=== PATIENT | female | born 1960 | race Caucasian/White ===

== ENCOUNTER 2023-08-19 22:32 | Emergency (ER) | payer MEDICARE ==
[~2023-08-19] VITALS: Ht 152.4 cm; Wt 61.0 kg
[2023-08-19 22:35] VITALS: TEMP 98.4; O2SAT 97
[2023-08-20 02:29] VITALS: BP 140/83; PULSE 67; RESP 18
== END 2023-08-20 02:30 | disposition home or self-care (01) ==
LOC: ER 22:32
DX: M54.50 Low back pain, unspecified (principal); F31.9 Bipolar disorder, unspecified; I10 Essential (primary) hypertension; Z88.6 Allergy status to analgesic agent
CPT/HCPCS: 99283